=== PATIENT | male | born 1990 | race Caucasian/White ===

== ENCOUNTER 2025-06-09 09:16 | Emergency (ER) | payer MEDICAID ==
[~2025-06-09] VITALS: Ht 175.3 cm; Wt 110.0 kg
[2025-06-09 09:27] VITALS: O2SAT 98
[2025-06-09] MEDS: KETOROLAC 15MG/ML VIAL IV ONE (10:01)
[2025-06-09] MEDS: DIPHENHYDRAMINE 50MG/ML VIAL IV ONE (10:01)
[2025-06-09] MEDS: ACETAMINOPHEN 500MG TABLET PO ONE (10:01)
[2025-06-09] MEDS: ONDANSETRON HCL 4MG/2ML INJ IV ONE (10:01)
[2025-06-09] MEDS: SODIUM CHLORIDE 0.9% 1,000 ML IV ONE (10:02)
[2025-06-09 10:11] LABS: BASOPHILS % 0.3 % (0.0-2.0); EOSINOPHILS % 0.0 % (0.0-5.0); HEMATOCRIT. 42.0 % (42.0-52.0); HEMOGLOBIN. 14.7 g/dL (14.0-18.0); LYMPHOCYTES % 8.2 % (20.0-50.0); MEAN PLATELET VOLUME 9.4 fl (7.4-10.4); MONOCYTES % 9.3 % (2.0-8.0); NEUTROPHILS % 82.2 % (40.0-76.0); PLATELET 161 x1000/uL (130-400); RED BLOOD CELL COUNT 4.64 mill/uL (4.7-6.1); RED CELL DISTRIBUTION WIDTH 13.4 % (11.6-14.6)
[2025-06-09 10:25] LABS: CREATININE 0.8 mg/dL (0.6-1.3)
[2025-06-09 10:26] LABS: UREA NITROGEN BLOOD 6 mg/dL (9-23)
[2025-06-09] MEDS ORDERED: POLY17PO3 MT (11:02)
[2025-06-09] MEDS ORDERED: ONDA-239 PO (11:02)
[2025-06-09 11:09] VITALS: BP 120/90; PULSE 91; RESP 16; TEMP 36.7; O2SAT 99
== END 2025-06-09 11:16 | disposition home or self-care (01) ==
LOC: ER 09:16
DX: K59.00 Constipation, unspecified (principal); R51.9 Headache, unspecified
CPT/HCPCS: 80048; 85025; 36415; 96361; 96374; 96375; 99284; J1200; J1885; J2405; J7030; Z7610

== ENCOUNTER 2025-06-13 15:45 | Emergency (ER) | payer MEDICAID ==
[~2025-06-13] VITALS: Ht 167.6 cm; Wt 123.0 kg
[~2025-06-13 15:45] MED LIST: ONDA-239 PO; POLY17PO3 MT
[2025-06-13 16:11] VITALS: O2SAT 97
[2025-06-13 18:35] LABS: BASOPHILS % 0.3 % (0.0-2.0); EOSINOPHILS % 0.2 % (0.0-5.0); HEMATOCRIT. 41.1 % (42.0-52.0); HEMOGLOBIN. 14.1 g/dL (14.0-18.0); LYMPHOCYTES % 15.1 % (20.0-50.0); MEAN PLATELET VOLUME 9.8 fl (7.4-10.4); MONOCYTES % 8.8 % (2.0-8.0); NEUTROPHILS % 75.6 % (40.0-76.0); PLATELET 234 x1000/uL (130-400); RED BLOOD CELL COUNT 4.54 mill/uL (4.7-6.1); RED CELL DISTRIBUTION WIDTH 13.9 % (11.6-14.6)
[2025-06-13] MEDS: AZITHROMYCIN 500 MG TABLET PO ONE (18:39)
[2025-06-13] MEDS: CEPHALEXIN 250MG CAPSULE PO ONE (18:39)
[2025-06-13 18:57] LABS: CREATININE 0.7 mg/dL (0.6-1.3); UREA NITROGEN BLOOD 7 mg/dL (9-23)
[2025-06-13 18:59] LABS: ASPARTATE AMINOTRANSFERASE 95 IU/L (<34); BILIRUBIN DIRECT 0.2 mg/dL (<=3.0)
[2025-06-13 19:00] LABS: BILIRUBIN TOTAL 0.7 mg/dL (0.1-1.0); PROTEIN TOTAL 7.1 g/dL (6.0-8.3)
[2025-06-13] MEDS ORDERED: AZIT250T12 MT (19:06)
[2025-06-13] MEDS ORDERED: CEPH500C2 MT (19:06)
[2025-06-13] MEDS ORDERED: FEO PR (19:06)
[2025-06-13 19:12] VITALS: BP 120/90; PULSE 82; RESP 15; TEMP 37.3; O2SAT 97
== END 2025-06-13 19:13 | disposition home or self-care (01) ==
LOC: ER 15:45
DX: J18.9 Pneumonia, unspecified organism (principal); K59.09 Other constipation; G43.909 Migraine, unspecified, not intractable, without status migrainosus; Z79.899 Other long term (current) drug therapy
CPT/HCPCS: 36415; 71045; 74176; 80048; 80076; 85025; 99284